=== PATIENT | female | born 1945 | race Caucasian/White ===

== ENCOUNTER 2018-04-08 10:18 | Outpatient (CLI) | payer MEDICARE, OTHER ==
--- NOTE | 2018-04-08 12:30 | ULT ---
CAROTID DUPLEX SONOGRAM: HISTORY: Carotid bruit. Vascular disease. FINDINGS: RIGHT: Mild plaque. On color and spectral Doppler evaluation, a peak systolic velocity of 86 cm per second and an ICA/CCA ratio of 0.9 suggests no hemodynamically significant stenosis within the extr acranial right ICA. Antegrade flow within the vertebral artery. LEFT: No significant plaque. On color and spectral Doppler evaluation, a peak systolic velocity of 124 cm per second and an ICA/CCA ratio of 1.0 suggests no hemodynamically significant stenosis within the extracranial left ICA. Antegrade flow within the vertebral artery. IMPRESSION: Minimal atherosclerosis visualized. No sonographic evidence of significant extracranial internal car otid artery stenosis. POS: [facility]
== END 2018-04-08 10:19 | disposition home or self-care (01) ==
LOC: BICULT 10:18
PROVIDERS: ATTEND Family Medicine
DX: R09.89 Other specified symptoms and signs involving the circulatory and respiratory systems (principal); I65.21 Occlusion and stenosis of right carotid artery
CPT/HCPCS: 93880

== ENCOUNTER 2018-05-18 09:55 | Outpatient (CLI) | payer MEDICARE, OTHER | END 2018-05-18 09:56 | disposition home or self-care (01) | LOC: CTENTCT 09:55 | PROVIDERS: ATTEND Specialist | DX: J32.9 Chronic sinusitis, unspecified (principal) | CPT/HCPCS: 70486 ==

== ENCOUNTER 2018-08-23 12:45 | Outpatient (CLI) | payer MEDICARE, OTHER ==
--- NOTE | 2018-08-23 13:42 | RAD ---
CHEST TWO VIEWS: HISTORY: Dyspnea. COMPARISON: 07/05/2018 FINDINGS: The lungs are clear. No pneumothorax or effusion. The cardiac silhouette and mediastinal contour ar e within normal limits. Scarring in the left lung base. IMPRESSION: No acute intrathoracic abnormality. POS: [facility]
== END 2018-08-23 12:46 | disposition home or self-care (01) ==
LOC: RAD 12:45
PROVIDERS: ATTEND Internal Medicine
DX: R06.00 Dyspnea, unspecified (principal)
CPT/HCPCS: 71046

== ENCOUNTER 2018-09-19 15:00 | Outpatient (CLI) | payer MEDICARE, OTHER | END 2018-09-19 15:01 | disposition home or self-care (01) | LOC: SLEEPLAB 15:00 | PROVIDERS: ATTEND Internal Medicine | DX: G47.33 Obstructive sleep apnea (adult) (pediatric) (principal); R53.83 Other fatigue; R09.89 Other specified symptoms and signs involving the circulatory and respiratory systems; R51 Headache; R06.83 Snoring; K21.9 Gastro-esophageal reflux disease without esophagitis; R35.1 Nocturia; I10 Essential (primary) hypertension; G47.00 Insomnia, unspecified | CPT/HCPCS: 95806 ==

== ENCOUNTER 2018-12-13 09:03 | Outpatient (CLI) | payer MEDICARE, OTHER | END 2018-12-13 09:04 | disposition home or self-care (01) | LOC: CP 09:03 | PROVIDERS: ATTEND Internal Medicine | DX: R05 Cough (principal); G47.33 Obstructive sleep apnea (adult) (pediatric) | CPT/HCPCS: 94010; 94727; 94729 ==

== ENCOUNTER 2019-02-09 20:30 | Outpatient (CLI) | payer MEDICARE, OTHER | END 2019-02-09 20:31 | disposition home or self-care (01) | LOC: SLEEPLAB 20:30 | PROVIDERS: ATTEND Internal Medicine | DX: G47.33 Obstructive sleep apnea (adult) (pediatric) (principal); R53.83 Other fatigue; R09.89 Other specified symptoms and signs involving the circulatory and respiratory systems; I10 Essential (primary) hypertension; R40.0 Somnolence; R51 Headache; K21.9 Gastro-esophageal reflux disease without esophagitis; R06.83 Snoring; R35.1 Nocturia | CPT/HCPCS: 95811 ==

== ENCOUNTER 2019-08-29 11:02 | Outpatient (CLI) | payer MEDICARE, OTHER ==
--- NOTE | 2019-08-29 12:30 | ULT ---
ULTRASOUND RENAL BILATERAL STANDARD: HISTORY: Left upper quadrant pain. COMPARISON: None. FINDINGS: Real-time, cassidy scale, and color evaluation of the kidneys and urinary bladder was performed. The right kidney measures 8.4 x 4.1 x 4 cm and the left kidney measures 9 x 4.6 x 5.4 cm. Postvoid u rinary bladder volume is less than 3 mL. No renal mass, hydronephrosis, or abnormal calcifications. IMPRESSION: 1. Small bilateral kidneys. Chronic medical renal disease. 2. No evidence for obstructive uropathy. POS: [facility]
== END 2019-08-29 11:03 | disposition home or self-care (01) ==
LOC: SCSULT 11:02
PROVIDERS: ATTEND Family Medicine
DX: R10.12 Left upper quadrant pain (principal); N27.1 Small kidney, bilateral; N18.9 Chronic kidney disease, unspecified
CPT/HCPCS: 76770

== ENCOUNTER 2020-03-21 08:58 | Outpatient (CLI) | payer MEDICARE, OTHER ==
--- NOTE | 2020-03-21 14:46 | CT ---
CT OF THE THORAX WITHOUT CONTRAST: 03/21/20 INDICATION: History of reflux, allergies and cough COMPARISON: No CT comparisons are available. FINDINGS: There are areas of subsegmental volume loss within the lower lingula and right middle lobe. No conflu ent air space opacity, pleural effusion, or pneumothorax is evident. Small pulmonary cysts seen withi n the right lung apex. There are vascular calcifications of the thoracic aorta. No enlarged lymph nod es are evident. The visualized upper abdomen reveals no definite acute abnormality. No definite acute osseous abnormality is evident. IMPRESSION: No definite acute cardiopulmonary abnormality. POS: [facility]
== END 2020-03-21 08:59 | disposition home or self-care (01) ==
LOC: SCSCT 08:58
PROVIDERS: ATTEND Family Medicine
DX: R05 Cough (principal)
CPT/HCPCS: 71250